=== PATIENT | male | born 2005 | race Caucasian/White ===

== ENCOUNTER 2025-01-21 11:33 | Emergency (ER) | payer BC, SELFPAY ==
[2025-01-21 11:35] VITALS: BP 114/70; PULSE 100; RESP 19; TEMP 36.6; O2SAT 100; BMI 18.6
[2025-01-21 11:36] VITALS: BP 114/70; PULSE 100; RESP 19; TEMP 36.6; O2SAT 100
--- NOTE | 2025-01-21 12:26 | ED.VIS.GI ---
HPI HPI - GI History of Present Illness Chief Complaint: Abd Pain Informant: patient Abdominal Pain/Flank Pain Onset: Today Context: Sudden Onset Timing: Continuous Quality: Aching Location: RUQ and RLQ Worsened by: - (Certain positions) Relieved by: - (Certain positions) Nausea/Vomiting/Emesis GI Symptom: Positive for Nausea and Vomiting Quality: Positive for Nonbilious; Negative for Blood streaks, Coffee ground or Hematemesis Diarrhea/Melena/Hematochezia GI Symptom: Negative for Diarrhea, Melena or Hematochezia Associated Symptoms Associated Symptoms: Negative for Dysuria, Frequency or Hematuria Narrative Narrative: Patient presents with abdominal pain that began today. Patient states it began when he woke up today. Patient states it has been constant. Patient describes it as aching. Patient states it is mainly over the right side of his abdomen. Patient states it is worse with certain positions and better with other positions. Patient admits to some nausea and vomiting. Patient denies any hematemesis or coffee-ground emesis. Patient denies any diarrhea, melena, or hematochezia. Patient denies any urinary complaints. Patient states his last meal was last evening at approximately 8 PM. Patient states he has been drinking fluids today. [facility] Medical History no medical history no medical history Home Medications ?Medication ?Instructions ?Recorded ?Last Taken ?Type NK 01/21/25 Unknown History hydrocodone-acetaminophen 5-325mg 1 tab PO Q6H PRN PRN Pain 3 days 01/21/25 Unknown Rx 5mg-325mg #10 TABLETS Allergy/AdvReac Type Severity Reaction Status Date / Time No Known Allergies Allergy Verified 01/21/25 11:34 Surgical History no surgical history no surgical history Social History Smoking Status: Never smoker ROS ROS ED Constitutional Constitutional ED: Denies chills or fever(s) Eyes Eyes: Denies blurry vision or change in vision ENT ENT ED: Denies rhinorrhea or sore throat Cardiovascular Cardiovascular: Denies chest pain or palpitations Respiratory/Chest Respiratory/Chest: Denies cough or dyspnea Gastrointestinal Gastrointestinal: Reports abdominal pain, nausea and vomiting; Denies diarrhea or melena Genitourinary Genitourinary ED: Denies dysuria or hematuria Musculoskeletal Musculoskeletal: Denies back pain or neck pain Integumentary Denies abscess or rash Neurologic Neurologic: Denies headache(s) or weakness Allergic/Immunologic Allergic/Immunologic ED: Denies mouth swelling or urticaria EXAM Physical Exam Const Vital Signs: 01/21/25 11:35 01/21/25 11:36 01/21/25 13:28 Temperature 98 F 98 F 98.5 F Temperature Source Oral Oral Oral Pulse Rate 100 100 100 Respiratory Rate 19 H 19 H 16 Blood Pressure 114/70 114/70 129/74 H Blood Pressure Mean 84 84 92 Pulse Ox 100 100 98 Oxygen Delivery Method Room Air Room Air Positive well nourished and well developed General Appearance ED: well developed and NAD HEENT Reports moist mucous membranes Neck supple and no JVD Resp normal respiratory effort and clear to auscultation bilaterally Cardio regular rate and regular rhythm GI non-tender; Negative for non-distended Auscultation: normoactive bowel sounds Palpation: soft and tender RLQ and RUQ; Negative for guarding or rebound tenderness present Extremity full ROM Neuro CN's II-XII intact bilaterally, moves all extremities and no sensory deficits noted Sensorium / Orientation: alert Motor Exam: strength 5/5 throughout Psych mental status grossly normal MDM MDM MDM Narrative Medical decision making narrative: Differential diagnosis includes peptic ulcer disease, duodenal ulcer, cholecystitis, cholelithiasis, pancreatitis, gastroenteritis, ureteral calculus, pyelonephritis, and electrolyte abnormality. CT scan of the abdomen and pelvis will be obtained to assess for bowel obstruction, perforation, pancreatitis, pyelonephritis, cholecystitis, and cholelithiasis. CBC will be obtained to assess for leukocytosis and anemia. Comprehensive metabolic profile will be obtained to assess for hepatic function, renal function, and electrolyte abnormality. Lipase will be obtained to assess for pancreatitis. Urinalysis will be obtained to assess for urinary tract infection and hematuria. Lab Data Attestation: I reviewed the patient's lab results. Lab results narrative: CBC was reviewed. There is a mild leukocytosis of 13.4. Comprehensive metabolic profile was reviewed and was essentially within normal limits. Lipase was reviewed and was normal. Urinalysis was reviewed. There is no evidence of urinary tract infection or hematuria. Urine ketones were elevated at 150. Labs: Laboratory Results - last 24 hr 01/21/25 01/21/25 11:57 12:45 WBC 13.4 H RBC 4.80 Hgb 14.9 Hct 43.1 MCV 89.8 MCH 31.0 MCHC 34.6 RDW Std Deviation 38.1 RDW Coeff of Lore 11.8 Plt Count 234 MPV 9.9 Immature Gran % (Auto) 0.300 Neut % (Auto) 91.3 H Lymph % (Auto) 3.4 L Kane % (Auto) 4.9 Eos % (Auto) 0.0 Baso % (Auto) 0.1 Absolute Neuts (auto) 12.3 H Absolute Lymphs (auto) 0.46 L Nucleated RBC % 0 Sodium 137 Potassium 3.7 Chloride 100 Carbon Dioxide 23.6 Anion Gap 13 BUN 17 Creatinine 0.76 Estim Creat Clear Calc 142.03 Est GFR (MDRD) Non-Af 133 BUN/Creatinine Ratio 22.0 H Glucose 126 H Calcium 9.4 Total Bilirubin 1.27 AST 23 ALT 18 Alkaline Phosphatase 80 Total Protein 7.4 Albumin 4.9 Globulin 2.5 Albumin/Globulin Ratio 1.9 Lipase 13 Urine Color Yellow Urine Clarity Clear Urine pH 6.5 Ur Specific [place] 1.015 Urine Protein 15 H Urine Glucose (UA) Normal Urine Ketones 150 A* Urine Occult Blood Negative Urine Nitrite Negative Urine Bilirubin Negative Urine Urobilinogen Normal Ur Leukocyte Esterase Negative Urine RBC 0 SEEN Urine WBC 0-5 SEEN Ur Squamous Epith Cells 0 SEEN Urine Bacteria 0 SEEN Urine Mucus 2+ Radiography Diagnostic Testing: Clinical Impression(s) from Imaging Studies Abdomen/Pelvis CT 01/21/25 13:38 IMPRESSION: No significant abdominopelvic abnormalities are demonstrated. Reading Location: [facility] CT scan of the abdomen and pelvis was obtained. There is no acute intra-abdominal free air or air-fluid level. There is no evidence of cholecystitis. This was interpreted by the radiologist and was also independently reviewed by myself. Treatment and Re-Evaluation :: Patient was given IV fluids. Patient was ordered morphine and Zofran but declined. Patient and mother were advised of the findings. Patient was given a prescription for a short course of Dennis to take as needed for severe pain. Patient was instructed to eat a bland diet. Patient was instructed to advance as tolerated. Patient was instructed to follow-up with his primary care physician in 5 to 7 days. Patient was instructed that he may need further testing as an outpatient. Patient and mother understood and were agreeable with the plan. All questions were answered. Discharge Plan Triage Chief Complaint: Abd Pain ED Provider: Chance Capps Dx/Rx/DC Orders Clinical Impression: Abdominal pain Instructions: ED Abdominal Pain Unkn Cause Male... Prescriptions: New hydrocodone-acetaminophen 5-325 mg tablet 1 tab PO Q6H PRN PRN (Reason: Pain) 3 Days Qty: 10 0RF No Action NK Primary Care Provider: Care Physician,No Primary Referrals: Jenny Johnson MD [Med Staff - Storage Receipt Poster] - 5-7 Days Care Physician,No Primary [Primary Care Provider] - Print Language: Nigerian Disposition Disposition: Home, Self Care
[2025-01-21 13:12] LABS: Bacteria 0 SEEN /hpf (None Seen); Red Blood Cells-Urine 0 SEEN /hpf (0-5); Squamous Epithelial Cells - UA 0 SEEN /hpf (0-5)
[2025-01-21 13:19] LABS: Absolute Lymphocyte Count 0.46 X10^3/uL (0.83-4.51); Absolute Neutrophil Count 12.3 X10^3/uL (2.0-7.7); Basophil# 0.02 X10^3/uL; Basophil% 0.1 % (0-1); Hematocrit 43.1 % (40-54); Hemoglobin 14.9 g/dL (13.0-16.5); Lymphocyte # 0.46 X10^3/ul (0.83-4.51); Lymphocyte % 3.4 % (19-41); Mean Corp Hgb Conc 34.6 g/dL (32-36); Mean Corpuscular Volume 89.8 fL (80-94); Mean Platelet Vol. 9.9 fl (6.2-12.0); Monocyte# 0.66 X10^3/uL; Monocyte% 4.9 % (0-10); NRBC Flagged by Analyzer 0 % (0-5); Neutrophil # 12.25 X10^3/uL (2.7-7.7); Neutrophil % 91.3 % (47-70); POSITIVE DIFFERENTIAL YES; Platelet Count 234 K/mm3 (150-450); RBC Distribution Width CV 11.8 % (11.6-14.6); RBC Distribution Width SD 38.1 fl (35.1-43.9); White Blood Count 13.4 K/mm3 (4.4-11.0)
[2025-01-21 13:25] LABS: Color, Urine Yellow (Yellow); Glucose, Dipstick Normal (Normal); Leukocyte Esterase-Dipstick Negative /ul (Negative); Nitrite-Dipstick Negative (Negative); Occult Blood-Urine Negative /ul (Negative); Protein-Dipstick 15 mg/dl (Negative); Specific Gravity, Urine 1.015 (1.002-1.030); Urine Bilirubin Dipstick Negative (Negative); Urine Clarity Clear (Clear); Urine Urobilinogen Normal (Normal); Urine pH 6.5 (5.0 - 8.0)
[2025-01-21] MEDS: 0.9% Normal Saline (1000mL) 1,000 ML 999 ML IV (13:26)
[2025-01-21 13:28] VITALS: BP 129/74; PULSE 100; RESP 16; TEMP 36.9; O2SAT 98
--- NOTE | 2025-01-21 13:38 | CT_ITS ---
PROCEDURE: ABDOMEN/PELVIS W IV CONT ONLY 01/21/2025 REASON FOR EXAM: ABDOMINAL PAIN TECHNIQUE: Contiguous axial scans of 3.75 mm slice thicknesses. Sagittal and coronal reconstruction images were obtained. One or more dose reduction techniques were used (e.g., automated exposure control, adjustment of mA and/or kv according to patient size, use of iterative reconstruction technique). ORAL CONTRAST TYPE: Not given CONTRAST: Isovue-300 VOLUME: Not given. RADIATION DOSE SUMMARY: DLP: 434.66 mGycm COMPARISON: No relevant prior FINDINGS: Lung bases: Unremarkable. Liver: Normal-size and attenuation. No masses. No biliary ductal dilatation. Gallbladder: Normal. Spleen: Unremarkable. Normal-size and attenuation. Pancreas: No masses or other abnormalities. Adrenals: No nodules or thickening. Kidneys: Excrete contrast material symmetrically. No suspicious masses or calcifications. Bladder: Unremarkable. Reproductive Organs: Unremarkable prostate gland. Bowel: No significant abnormalities. Appendix: No signs of appendicitis. Lymph nodes: No lymphadenopathy. Vasculature: Unremarkable. Peritoneum / Retroperitoneum: No masses. No free air. No free fluid. Anterior abdominal wall: No abnormalities. Bones: Unremarkable. CT/Abdomen/Pelvis W IV Cont ONLY IMPRESSION: No significant abdominopelvic abnormalities are demonstrated. Reading Location: [facility]
[2025-01-21 13:45] LABS: Ketone-Dipstick 150 mg/dl (Negative)
[2025-01-21 13:49] LABS: ALB/GLOB Ratio 1.9 RATIO (0.9-2.4); AST(SGOT) 23 U/L (<=37); Alanine Aminotransfer ALT/SGPT 18 U/L (<=46); Albumin, Serum 4.9 g/dL (3.5-5.0); Alkaline Phosphatase 80 U/L (40-129); Anion Gap 13 (5-15); BUN 17 mg/dL (4-19); Calcium,Total 9.4 mg/dL (7.6-11.0); Carbon Dioxide 23.6 mmol/L (21.0-32.0); Chloride 100 mmol/L (98-108); Creatinine, Serum 0.76 mg/dL (0.70-1.20); EST Glomerular Filtration Rate 133 (>60); Estimated Creatinine Clearance 142.03 ml/min (50-250); Globulin 2.5 g/dL (2.2-4.2); Glucose 126 mg/dL (70-99); Lipase 13 U/L (13-75); Potassium 3.7 mmol/L (3.3-5.1); Protein, Total 7.4 g/dL (5.9-8.4); Sodium Level 137 mmol/L (133-145); Total Bilirubin 1.27 mg/dL (0.00-1.30)
[2025-01-21 13:57] LABS: Mucous, Urine 2+ /hpf (<or=2+); White Blood Cells 0-5 SEEN /hpf (0-5)
[2025-01-21 15:03] VITALS: BP 125/63; PULSE 89; RESP 18; TEMP 36.9; O2SAT 100
== END 2025-01-21 15:11 | disposition home or self-care (01) ==
PROVIDERS: Emergency Provider Emergency Medicine; Visit Provider Emergency Medicine
DX: R10.9 Unspecified abdominal pain (principal); R11.2 Nausea with vomiting, unspecified
CPT/HCPCS: 74177; 80053; 81001; 83690; 85025; 96360; 99283; Q9967; J2405